=== PATIENT | female | born 1945 | race Caucasian/White ===

== ENCOUNTER 2020-08-22 10:07 | Inpatient (IN) | payer OTHER ==
[2020-08-22] MEDS ORDERED: NA CHLORIDE 0.9% 1,000 ML ONE ×2 (13:21→18:11)
[2020-08-22] MEDS ORDERED: FLEET ENEMA ADULT PR ONE (13:21)
[2020-08-22 14:00] LABS: Absolute Lymphocytes (CBC) 24.5 K/uL (0.7-4.9); Basophils % 0.3 % (0-1.3); Hematocrit 42.5 % (36.0-45.0); Lymphocytes % 46.3 % (15.3-44.8); MPV 8.7 fL (7.6-11.3); RBC Red Blood Cell Count 4.69 M/uL (3.86-4.86)
[2020-08-22 14:07] LABS: Potassium 3.4 mmol/L (3.5-5.1)
--- NOTE | 2020-08-22 15:33 | RAD REPORT ---
EXAM DESCRIPTION: CT - Abdomen Pelvis W Contrast - 08/22/2020 3:13 pm CLINICAL HISTORY: Abd pain;Constipation COMPARISON: Thorax W/ Con dated 04/19/2019 TECHNIQUE: Biphasic, helical CT imaging of the abdomen and pelvis was performed following 100 ml non -ionic IV contrast. Due to the on set of nausea they were was not delay between arterial and venous p hase acquisition. Oral contrast was given. All CT scans are performed using dose optimization technique as appropriate and may include automated exposure control or mA/KV adjustment according to patient size. FINDINGS: No suspicious findings in the lung bases. Patient has a large hiatal hernia with approxima tely 25% of the stomach intrathoracic. Liver shows diffuse fatty infiltration no focal liver lesion. No portal vein abnormality. Pancreatic atrophy and fatty infiltration changes are present with no acute pancreatic process. No splenic abnor mality. Well filled gallbladder shows no wall thickening or edema. There are numerous calcifications within or adjacent to the gallbladder neck and cystic duct. At least some of these calcifications wer e present April 2019. The CT chest study obtained at that time only partially imaged the upper abd omen. No duct stone or biliary tree dilatation seen. An acute gallbladder process is doubtful. Symmetric renal function is seen with no hydronephrosis or suspicious renal mass. Benign renal cysts are present. No pyelonephritis or acute parenchymal process. Contracted urinary bladder shows no susp icious finding. No primary ovarian or uterine abnormality seen. No adrenal abnormalities. No acute stomach or small bowel finding. Oral CT contrast has reached the distal descending colon. No free air or pneumatosis. Trace amounts of free fluid are seen in the dependent portion of the pelvis . The sigmoid colon is tortuous and redundant. Mild diverticulosis is present. The appendix is position ed near the midline and extends inferiorly abutting the tortuous and redundant sigmoid colon. There i s slight sigmoid wall thickening can't stranding in the adjacent fat. The appendix is 12 mm in diamet er. No oral contrast or air within the lumen of the appendix. Tip of the cecum is slightly thickened. It is uncertain if the findings represent a mild sigmoid dive rticulitis with secondary involvement of the colon or the findings represent appendicitis with second peter involvement of the colon. No hernia, mass or bulky lymphadenopathy. No suspicious bony findings. IMPRESSION: The appendix abuts the sigmoid colon in the low midline pelvis and both the appendix and sigmoid colon or abnormal in appearance. Findings may reflect acute appendicitis with secondary involvement of the sigmoid colon. Mild divert iculitis with secondary involvement of the appendix would be possible as well. Correlation is needed with any clinical or laboratory findings that may help differentiate. No free air, abscess, extravasation of contrast or other surgically emergent component. Diffuse fatty infiltration of the liver. Calcifications within or adjacent to the gallbladder neck or cystic duct are probably chronic and without an acute gallbladder or biliary tree component.
--- NOTE | 2020-08-22 16:05 | EDPHYS ---
Physician Documentation [facility] Name: Meseret Meredith Age: 74 yrs Sex: Female : 1945 Arrival Date: 08/22/2020 Time: 10:09 Bed 16 Private MD: ED Physician Evin Braun HPI: 08/22 13:12 This 74 yrs old Female presents to ER via Ambulatory with complaints of rn Constipation. 13:12 The patient presents with abdominal pain in the lower abdomen. Onset: The rn symptoms/episode began/occurred 5 day(s) ago. The symptoms do not radiate. Associated signs and symptoms: Pertinent positives: constipation, nausea, Pertinent negatives: diarrhea, fever, shortness of breath. Modifying factors: The symptoms are alleviated by nothing, the symptoms are aggravated by nothing. Severity of pain: At its worst the pain was mild in the emergency department the pain is unchanged. The patient has not experienced similar symptoms in the past. The patient has not recently seen a physician. Reports no BM for 5 days, takes phentermine for weight loss, no fever, no blood, + lower abd pain. Reports only passing small amount of gas. . Historical: - Allergies: 10:24 Codeine; ca1 - Home Meds: 10:24 levothyroxine oral [Active]; ca1 - PMHx: 10:24 Thyroid problem; ca1 - PSHx: 10:24 None; ca1 - Immunization history:: Client reports receiving the 2nd dose of the Covid vaccine, Client reports receiving the 1st dose of the Covid vaccine, Pneumococcal vaccine is up to date, Flu vaccine is up to date. - Social history:: Smoking status: Patient reports the use of cigarette tobacco products, smokes one-half pack cigarettes per day. - Family history:: not pertinent. - Hospitalizations: : No recent hospitalization is reported. ROS: 13:12 Constitutional: Negative for fever, chills, and weight loss, Eyes: Negative for injury, rn pain, redness, and discharge, Neck: Negative for injury, pain, and swelling, Cardiovascular: Negative for chest pain, palpitations, and edema, Respiratory: Negative for shortness of breath, cough, wheezing, and pleuritic chest pain, Abdomen/GI: + lower abd pain and constipation Back: Negative for injury and pain, : Negative for injury, bleeding, discharge, and swelling, MS/Extremity: Negative for injury and deformity, Skin: Negative for injury, rash, and discoloration, Neuro: Negative for headache, weakness, numbness, tingling, and seizure. Exam: 13:12 Constitutional: This is a well developed, well nourished patient who is awake, alert, rn and in no acute distress. Head/Face: Normocephalic, atraumatic. Cardiovascular: Regular rate and rhythm. No pulse deficits. Respiratory: No increased work of breathing, no retractions or nasal flaring. Abdomen/GI: soft, + suprapubic tenderness, no rebound Skin: Warm, dry MS/ Extremity: Pulses equal, no cyanosis. Neuro: Awake and alert, GCS 15 Vital Signs: 10:21 BP 124 / 74; Pulse 116; Resp 18 S; Temp 98.3(TE); Pulse Ox 100% on R/A; Weight 83.91 kg ca1 (R); Height 5 ft. 0 in. (152.40 cm) (R); Pain 5/10; 12:45 BP 117 / 70; Pulse 106; Resp 17; Pulse Ox 95% ; bp 13:45 BP 99 / 31; Pulse 90; Resp 18; Pulse Ox 95% ; bp 15:29 BP 105 / 63; Pulse 95; Resp 17; Pulse Ox 96% ; bp 16:30 BP 124 / 51; Pulse 105; Resp 16; Pulse Ox 96% ; bp 10:21 Body Mass Index 36.13 (83.91 kg, 152.40 cm) ca1 MDM: 12:51 Patient medically screened. rn 16:02 Differential diagnosis: appendicitis, bowel obstruction, diverticulitis, non-specific rn abd pain. Data reviewed: vital signs, nurses notes, lab test result(s), radiologic studies, CT scan, and as a result, I will admit patient. Counseling: I had a detailed discussion with the patient and/or guardian regarding: the historical points, exam findings, and any diagnostic results supporting the discharge/admit diagnosis, lab results, radiology results, the need for further work-up and treatment in the hospital. Response to treatment: the patient's symptoms have mildly improved after treatment, and as a result, I will admit patient. Admission orders: after a detailed discussion of the patient's condition and case, the admit orders are written by me. ED course: Pt with unclear etiology of abd pain, ct shows possible diverticulitis with extension to midline appendicitis or vice versa. Consulted with Dr. Turner, has come to ER for evaluation. . 08/22 12:59 Order name: CBC with Diff rn 08/22 12:59 Order name: Basic Metabolic Panel rn 08/22 13:00 Order name: CBC with Automated Diff EDMS 08/22 13:00 Order name: Basic Metabolic Panel; Complete Time: 15:45 EDMS 08/22 16:37 Order name: Basic Metabolic Panel EDMS 08/22 16:37 Order name: Basic Metabolic Panel EDMS 08/22 12:59 Order name: CT Abd/Pelvis - PO and IV Contrast; Complete Time: 15:45 rn 08/22 16:24 Order name: Abdomen EDMS 08/22 16:37 Order name: CBC with Automated Diff EDMS 08/22 16:37 Order name: CBC with Automated Diff EDMS 08/22 18:36 Order name: COVID-19 : Document "Date of Symptom Onset" if Symptomatic. bd 08/22 19:14 Order name: CORONAVIRUS EDMS 08/22 20:00 Order name: SARS-COV-2 RT PCR EDMS 08/22 21:50 Order name: Manual Differential EDMS 08/22 12:59 Order name: IV Start; Complete Time: 14:43 rn 08/22 16:05 Order name: Consult Surgery-Fazal Turner MD (GENERAL SURGERY) rn 08/22 16:37 Order name: CONS Physician Consult EDAZ 08/22 16:37 Order name: NPO EDAZ Administered Medications: 13:10 Drug: Fleet Enema 133 ml Route: TX; bp 14:42 Follow up: Response: No adverse reaction bp 13:30 Drug: NS 0.9% 1000 ml Route: IV; Rate: 1000 ml; Site: left forearm; bp 18:22 Follow up: IV Status: Completed infusion; IV Intake: 1000ml bp 16:15 Drug: Zosyn 3.375 grams Route: IVPB; Infused Over: 60 mins; Site: left antecubital; bp 18:22 Follow up: IV Status: Completed infusion; IV Intake: 100ml bp 16:19 CANCELLED (Wrong MD): Dulcolax (bisacodyl) Suppository 10 mg TX once jl7 16:19 CANCELLED (wrong MD): Magnesium Citrate Liquid 300 ml PO once jl7 16:47 Drug: Magnesium Citrate Liquid 300 ml Route: PO; bp 18:22 Follow up: Response: No adverse reaction bp 16:47 Drug: Dulcolax (bisacodyl) Suppository 10 mg Route: TX; bp 18:22 Follow up: Response: No adverse reaction bp Disposition: 08/22/20 16:05 Hospitalization ordered by Dionne Purcell for Inpatient Admission. Preliminary diagnosis are Diverticulitis of large intestine without perforation or abscess without bleeding, Unspecified acute appendicitis. - Bed requested for Telemetry/MedSurg (Inpatient). - Status is Inpatient Admission. ea - Condition is Stable. - Problem is new. - Symptoms have improved. Signatures: Dispatcher [employer] EDMS Renae Boyd Diana, RN RN dw Nieto, Roman, MD MD rn Leal, Jahala, RN RN jl7 Corine Arguelles RN RN ea Peltier, Brian, RN RN bp Acob, Cheryl RN ALDAIR ca1 Corrections: (The following items were deleted from the chart) 15:46 13:12 Constitutional: This is a well developed, well nourished patient who is awake, rn alert, and in no acute distress. Head/Face: Normocephalic, atraumatic. Cardiovascular: Regular rate and rhythm. No pulse deficits. Respiratory: No increased work of breathing, no retractions or nasal flaring. Abdomen/GI: soft, no focal tenderness, no distension Skin: Warm, dry MS/ Extremity: Pulses equal, no cyanosis. Neuro: Awake and alert, GCS 15 rn 16:19 16:13 Dulcolax (bisacodyl) Suppository 10 mg TX once ordered. jl7 jl7 16:19 16:13 Magnesium Citrate Liquid 300 ml PO once ordered. jl7 jl7 17:17 16:05 Hospitalization Ordered by Dionne Purcell MD for Inpatient Admission. Preliminary bd diagnosis is Diverticulitis of large intestine without perforation or abscess without bleeding; Unspecified acute appendicitis. Bed requested for Telemetry/MedSurg (Inpatient). Status is Inpatient Admission. Condition is Stable. Problem is new. Symptoms have improved. rn 22:17 17:17 08/22/2020 16:05 Hospitalization Ordered by Dionne Purcell MD for Inpatient dw Admission. Preliminary diagnosis is Diverticulitis of large intestine without perforation or abscess without bleeding; Unspecified acute appendicitis. Bed requested for [facility] ER HOLD. Status is Inpatient Admission. Condition is Stable. Problem is new. Symptoms have improved. bd 08/23 00:09 08/22 22:17 08/22/2020 16:05 Hospitalization Ordered by Dionne Purcell MD for Inpatient ea Admission. Preliminary diagnosis is Diverticulitis of large intestine without perforation or abscess without bleeding; Unspecified acute appendicitis. Bed requested for Telemetry/MedSurg (Inpatient). Status is Inpatient Admission. Condition is Stable. Problem is new. Symptoms have improved. dw
--- NOTE | 2020-08-22 16:05 | ER ---
Nurse's Notes [facility] Name: Meseret Meredith Age: 74 yrs Sex: Female : 1945 Arrival Date: 08/22/2020 Time: 10:09 Bed 16 Private MD: Diagnosis: Diverticulitis of large intestine without perforation or abscess without bleeding;Unspecified acute appendicitis Presentation: 08/22 10:21 Chief complaint: Patient states: have not had BM in 5 - 6 days. Tried fleet enema, ca1 laxatives, no relief. Reports pain and discomfort on buttocks. Reports nausea. Coronavirus screen: Client denies travel out of the [place] in the last 14 days. nausea, Client presents with at least one sign or symptom that may indicate coronavirus-19. Standard/surgical mask placed on the client. Provider contacted for isolation considerations. Ebola Screen: Patient negative for fever greater than or equal to 101.5 degrees Fahrenheit, and additional compatible Ebola Virus Disease symptoms Patient denies exposure to infectious person. Patient denies travel to an Ebola-affected area in the 21 days before illness onset. No symptoms or risks identified at this time. Initial Sepsis Screen: Does the patient meet any 2 criteria? No. Patient's initial sepsis screen is negative. Does the patient have a suspected source of infection? No. Patient's initial sepsis screen is negative. Risk Assessment: Do you want to hurt yourself or someone else? Patient reports no desire to harm self or others. Onset of symptoms was August 22, 2020. 10:21 Method Of Arrival: Ambulatory ca1 10:21 Acuity: GINA 3 ca1 Triage Assessment: 12:45 General: Appears distressed, uncomfortable, obese, Behavior is cooperative, appropriate bp for age, anxious. Pain: Complains of pain in abdomen. EENT: No deficits noted. Neuro: No deficits noted. Cardiovascular: No deficits noted. Respiratory: No deficits noted. GI: Reports lower abdominal pain, constipation. : No signs and/or symptoms were reported regarding the genitourinary system. Derm: No deficits noted. Musculoskeletal: No deficits noted. Historical: - Allergies: 10:24 Codeine; ca1 - Home Meds: 10:24 levothyroxine oral [Active]; ca1 - PMHx: 10:24 Thyroid problem; ca1 - PSHx: 10:24 None; ca1 - Immunization history:: Client reports receiving the 2nd dose of the Covid vaccine, Client reports receiving the 1st dose of the Covid vaccine, Pneumococcal vaccine is up to date, Flu vaccine is up to date. - Social history:: Smoking status: Patient reports the use of cigarette tobacco products, smokes one-half pack cigarettes per day. - Family history:: not pertinent. - Hospitalizations: : No recent hospitalization is reported. Screenin:45 Abuse screen: Denies threats or abuse. Denies injuries from another. Nutritional bp screening: No deficits noted. Tuberculosis screening: No symptoms or risk factors identified. Fall Risk None identified. Assessment: 12:45 General: SEE TRIAGE NOTE. bp 13:10 Reassessment: PO CONTRAST COMPLETE, CT NOTIFIED. bp 13:45 Reassessment: No changes from previously documented assessment. Patient and/or family bp updated on plan of care and expected duration. Pain level reassessed. Patient is alert, oriented x 3, equal unlabored respirations, skin warm/dry/pink. CT PENDING. 15:29 Reassessment: No changes from previously documented assessment. Patient and/or family bp updated on plan of care and expected duration. Pain level reassessed. Patient is alert, oriented x 3, equal unlabored respirations, skin warm/dry/pink. PT RETURNED FROM CT. RESULTS PENDING. 15:50 Reassessment: Dr. Braun at bedside discussing results and POC. jl7 16:05 Reassessment: DR SCHWAB AT B/S FOR SURG C/S. bp 17:30 Reassessment: PT ON ER HOLD. SEE [facility] FOR FURTHER CHARTING. bp Vital Signs: 10:21 BP 124 / 74; Pulse 116; Resp 18 S; Temp 98.3(TE); Pulse Ox 100% on R/A; Weight 83.91 kg ca1 (R); Height 5 ft. 0 in. (152.40 cm) (R); Pain 5/10; 12:45 BP 117 / 70; Pulse 106; Resp 17; Pulse Ox 95% ; bp 13:45 BP 99 / 31; Pulse 90; Resp 18; Pulse Ox 95% ; bp 15:29 BP 105 / 63; Pulse 95; Resp 17; Pulse Ox 96% ; bp 16:30 BP 124 / 51; Pulse 105; Resp 16; Pulse Ox 96% ; bp 10:21 Body Mass Index 36.13 (83.91 kg, 152.40 cm) ca1 ED Course: 10:09 Patient arrived in ED. as 10:23 Triage completed. ca1 10:24 Arm band placed on right wrist. ca1 12:45 Patient has correct armband on for positive identification. Bed in low position. Call bp light in reach. Side rails up X2. 12:51 Evin Braun MD is Attending Physician. rn 13:00 Demetrius Guallpa RN is Primary Nurse. bp 13:40 Inserted saline lock: 20 gauge in left forearm, using aseptic technique. Blood bp collected. 13:52 Basic Metabolic Panel Sent. bp 13:52 CBC with Diff Sent. bp 15:12 CT Abd/Pelvis - PO and IV Contrast In Process Unspecified. EDMS 16:04 Dionne Purcell MD is Hospitalizing Provider. rn 18:21 No provider procedures requiring assistance completed. Patient admitted, IV remains in bp place. Administered Medications: 13:10 Drug: Fleet Enema 133 ml Route: DE; bp 14:42 Follow up: Response: No adverse reaction bp 13:30 Drug: NS 0.9% 1000 ml Route: IV; Rate: 1000 ml; Site: left forearm; bp 18:22 Follow up: IV Status: Completed infusion; IV Intake: 1000ml bp 16:15 Drug: Zosyn 3.375 grams Route: IVPB; Infused Over: 60 mins; Site: left antecubital; bp 18:22 Follow up: IV Status: Completed infusion; IV Intake: 100ml bp 16:19 CANCELLED (Ashley POWELL): Dulcolax (bisacodyl) Suppository 10 mg DE once jl7 16:19 CANCELLED (ashley POWELL): Magnesium Citrate Liquid 300 ml PO once jl7 16:47 Drug: Magnesium Citrate Liquid 300 ml Route: PO; bp 18:22 Follow up: Response: No adverse reaction bp 16:47 Drug: Dulcolax (bisacodyl) Suppository 10 mg Route: DE; bp 18:22 Follow up: Response: No adverse reaction bp Intake: 18:22 IV: 100ml; Total: 100ml. bp 18:22 IV: 1000ml; Total: 1100ml. bp Outcome: 16:05 Decision to Hospitalize by Provider. rn 17:30 Admitted to ER Hold. [facility] documentation. bp 17:30 Condition: stable 17:30 Instructed on the need for admit. 08/23 00:09 Patient left the ED. ea Signatures: Dispatcher [employer] Cira Amador Roman, MD MD rn Leal, Jahala RN RN jl7 Corine Arguelles RN Demetrius Tamayo ea RN RN bp Esme Swanson RN RN ca1
[2020-08-22] MEDS ORDERED: ACETAMINOPHEN 500 MG TAB PO PRN (16:34)
[2020-08-22] MEDS ORDERED: ONDANSETRON 4 MG/2 ML VIAL IV PRN (16:34)
[2020-08-22] MEDS ORDERED: HYDROMORPHONE HCL 1 MG/ML INJ IV PRN (16:34)
[2020-08-22] MEDS ORDERED: PIPER/TAZO/NS 3.375gm 3.375 GM/100 ML BAG ONE (16:36)
[2020-08-22] MEDS ORDERED: MAGNESIUM CITRATE 300 ML BOT ONE (16:53)
[2020-08-22] MEDS ORDERED: BISACODYL 10 MG RECTAL SUPP ONE (16:53)
[2020-08-22] MEDS: NA CHLORIDE 0.9% 1,000 ML IV SCH (17:00)
[2020-08-22] MEDS: Levofloxacin500mg IV 500 MG/100 ML BAG IV SCH (17:00)
[2020-08-22] MEDS: METRONIDAZOLE 500mg IVPB 500 MG/100 ML BAG IV SCH (18:00)
[2020-08-22 18:45] VITALS: BMI 36.1
--- NOTE | 2020-08-22 21:08 | CON ---
Date of Consultation: 08/22/2020 Brief Hpi: The patient is a 74-year-old female who has been noticing constipation for approximately 5 days prior to her presentation to the emergency room. She has never had similar episodes before in the past. No recent sick contacts. No new food exposures. No recent travel. No COVID exposure by her description. She states that she has had decreased p.o. intake over the last 2 days as well. S he does take phentermine for weight loss, but she has not tried any other medications to help with ca tharsis. Past Medical History: Significant for Rhea's thyroiditis, chronic lymphoid leukemia. Past Surgical History: She has had a D and C when she was 31. Home Medications: Include levothyroxine and phentermine. Allergies: TO CODEINE, WHICH CAUSES CONFUSION AND NAUSEA AND ITCHING. Immunization: She has received a second dose of the COVID vaccine. Social History: She smokes cigarettes. She denies alcohol or recreational drug use. Review of Systems: Ten-point review of systems other than HPI, denies. Colonoscopy: Her last colonoscopy was 6 years ago. She reports that it was completely normal, but c annot recall specific details but does not recall any findings on that particular occasion. Physical Examination: General: At the time of my examination, she is awake, alert, oriented. Psychiatric: She answers questions appropriately. Conversive. HEENT: She was normocephalic. Her sclerae were anicteric. Her mucous membranes were moist. Oropha rynx is clear. Neck: Supple without JVD. Chest: Normal expansion and excursion. Cardiovascular: Regular rate and rhythm. Pulmonary: Clear to auscultation bilaterally. Abdomen: Soft with positive suprapubic right lower quadrant, left lower quadrant tenderness to palpa tion. No focal peritonitis. No rebound or guarding. Her abdomen is obese. Extremities: No clubbing, cyanosis, edema. Skin: Warm and dry. Laboratory Data: Reveals a white blood count of 52.9. Her hemoglobin is 14.2, hematocrit of 42.5, h er platelet count is 360. Neutrophils are 49%. Sodium 134, potassium 3.4, chloride 101. Carbon sánchez xide 26, BUN 18, creatinine 0.8, glucose is 128. She had imaging performed, which included a CT scan of the abdomen and pelvis, officially read as appendix about the sigmoid colon in the low midline pe lvis and both the appendix and sigmoid colon are abnormal in appearance. Findings may reflect acute appendicitis with secondary involvement of the sigmoid colon, mild diverticulitis with secondary invo lvement of the appendix would be possible as well. Correlation is needed with any clinical or labora tory findings that may help differentiate. No free air, extravasation of contrast, surgically emerge nt component. Diffuse fatty infiltration of liver, calcifications, or adjacent gallbladder neck, or cystic duct, probably chronic and without acute gallbladder or biliary tree component. Assessment And Plan: This is a 74-year-old female who comes in with history of chronic lymphoid leuk emia with inflammatory process either diverticulitis versus acute appendicitis. 1.Cannot differentiate the etiology at this time. As such, the patient will be given a Dulcolax sup pository and magnesium citrate to help with bowel function. In addition, she will be given. 2.Antibiotic coverage with Zosyn 3.375 IV q.6. 3.IV fluid hydration. 4.N.p.o. after midnight. 5.We will repeat CT scan of the abdomen pelvis tomorrow to see if we can differentiate and better de fine the etiology if this is acute appendicitis. I have explained the risks, benefits, and alternati ves of laparoscopic possible open appendectomy including, but not limited to bleeding, infection, dam age to surrounding tissue, need further operative procedures. If it is sigmoid diverticulitis, will continue treat her nonoperatively with antibiotic coverage and serial abdominal exams and she will ne ed an outpatient colonoscopy. I have explained the risks, benefits, and alternatives of the above stated plan. The patient to proceed as indicated. FRAN/ADI Voice ID: [id number] Report ID: [id number]
[2020-08-22 21:49] LABS: Platelet Estimate ADEQ; Smudge Cells PRESENT
[2020-08-22 21:50] LABS: Blood Morphology Comment NOT SEEN (NOT SEEN)
[2020-08-23] MEDS: METRONIDAZOLE 500mg IVPB 500 MG/100 ML BAG IV SCH ×4 (00:24→17:18)
[2020-08-23] MEDS: NA CHLORIDE 0.9% 1,000 ML IV SCH ×3 (00:24→17:00)
[2020-08-23 05:34] LABS: Absolute Lymphocytes (CBC) 19.9 K/uL (0.7-4.9); Basophils % 0.1 % (0-1.3); Hematocrit 36.2 % (36.0-45.0); Lymphocytes % 44.8 % (15.3-44.8); MPV 8.2 fL (7.6-11.3)
[2020-08-23 05:50] LABS: BUN Blood Urea Nitrogen 15 mg/dL (7-18); Bicarbonate 27 mmol/L (21-32); Glucose Level 110 mg/dL (74-106); Potassium 3.8 mmol/L (3.5-5.1); Sodium Level 141 mmol/L (136-145)
--- NOTE | 2020-08-23 09:53 | P.HP ---
Certification for Inpatient Patient admitted to: Inpatient With expected LOS: >2 Midnights Patient will require the following post-hospital care: None Practitioner: I am a practitioner with admitting privileges, knowledge of patient current condition, hospital course, and medical plan of care. Services: Services provided to patient in accordance with Admission requirements found in Title 42 Section 412.3 of the Code of Federal Regulations Patient History Date of Service: 08/22/20 Reason for admission: Abdominal pain History of Present Illness: Patient is a 74-year-old female came to the hospital with pain in the left lower quadrant. Patient states that the pain was getting more severe through the day so she came into the ER for further evaluation. In the emergency room she had imaging studies which revealed questionable appendicitis but most likely diverticulitis. Patient was started on IV antibiotic therapy. Patient be admitted to the hospital and surgery wants to repeat the CT scan this morning. If that is negative then patient can possibly be used treated with antibiotics with outpatient colonoscopy. Allergies codeine Allergy (Verified 08/22/20 17:41) Rash Home Medications: Cholecalciferol (Vitamin D3) [Vitamin D3] 1 tab PO DAILY 08/22/20 Levothyroxine [Synthroid*] 100 mcg PO DAILY 08/22/20 Phentermine HCl 37.5 mg PO DAILY 08/22/20 - Past Medical/Surgical History Has patient received pneumonia vaccine in the past: Yes Diabetic: No -: HYPOTHYROID Past Surgical History: Patient denies surgical history - Family History Father Family History: Reviewed- Non-Contributory - Social History Smoking Status: Never smoker Alcohol use: No CD- Drugs: No Review of Systems 10-point ROS is otherwise unremarkable Physical Examination - Vital Signs Temperature: 97.7 F Blood Pressure: 137/63 Pulse: 92 Respirations: 17 Pulse Ox (%): 96 - Physical Exam General: Alert, In no apparent distress, Oriented x3 HEENT: Atraumatic, PERRLA, Mucous membr. moist/pink, EOMI, Sclerae nonicteric Neck: Supple, 2+ carotid pulse no bruit, No LAD, Without JVD or thyroid abnormality Respiratory: Clear to auscultation bilaterally, Normal air movement Cardiovascular: Regular rate/rhythm, Normal S1 S2 Gastrointestinal: Normal bowel sounds, Soft and benign, Non-distended, No r ebound, No guarding, Tenderness (Left lower quadrant) Musculoskeletal: No clubbing, No swelling, No tenderness Integumentary: No rashes Neurological: Normal gait, Normal speech, Normal strength at 5/5 x4 extr, Normal tone, Sensation intact, Cranial nerves 3-12 intact, Normal affect Lymphatics: No axilla or inguinal lymphadenopathy - Studies Laboratory Data (last 24 hrs) 08/22/20 13:40: Sodium 134 L, Potassium 3.4 L, BUN 18, Creatinine 0.85, Glucose 128 H 08/22/20 13:40: WBC 52.90 H*, Hgb 14.2, Hct 42.5, Plt Count 360 Assessment & Plan - Problems (Diagnosis) (1) Diverticulitis Current Visit: Yes Status: Acute (2) Appendicitis Current Visit: Yes Status: Acute (3) Hypothyroidism Current Visit: Yes Status: Acute - Plan 1. Continue with IV hydration 2. Continue with IV antibiotics 3. Continue with pain control 4. NPO 5. General surgery consultation; outpatient colonoscopy in 6-12 weeks 6. Serial H&H, and we will monitor CBC, BMP, LFTs and lipase along with electrolytes. 7. GI and DVT prophylaxis - Advance Directives Does patient have a Living Will: No Does patient have a Durable POA for Healthcare: No
--- NOTE | 2020-08-23 09:54 | P.PN ---
Subjective Date of Service: 08/23/20 Clinically, pain is better controlled. Continue IV antibiotic therapy. Review of Systems 10-point ROS is otherwise unremarkable Physical Examination - Vital Signs Temperature: 97.7 F Blood Pressure: 137/63 Pulse: 92 Respirations: 17 Pulse Ox (%): 96 - Physical Exam General: Alert, In no apparent distress, Oriented x3 Respiratory: Clear to auscultation bilaterally, Normal air movement Cardiovascular: Regular rate/rhythm, Normal S1 S2 Gastrointestinal: Normal bowel sounds, Soft and benign, Non-distended, Tenderness Musculoskeletal: No clubbing, No swelling Neurological: Normal strength at 5/5 x4 extr, Normal tone, Sensation intact, Cranial nerves 3-12 intact - Studies Laboratory Data (last 24 hrs) 08/22/20 13:40: Sodium 134 L, Potassium 3.4 L, BUN 18, Creatinine 0.85, Glucose 128 H 08/22/20 13:40: WBC 52.90 H*, Hgb 14.2, Hct 42.5, Plt Count 360 Assessment & Plan - Problems (Diagnosis) (1) Diverticulitis Status: Acute (2) Appendicitis Status: Acute (3) Hypothyroidism Status: Acute - Plan Continue with plan of care as mentioned below 1. Continue with IV hydration 2. Continue with IV antibiotics 3. Continue with pain control 4. Clear liquid diet and advance as tolerated 5. General surgery consultation; 6. Serial H&H, and we will monitor CBC, BMP, LFTs and lipase along with e lectrolytes. 7. GI and DVT prophylaxis Discharge Plan: Home Plan to discharge in: Greater than 2 days - Advance Directives Does patient have a Living Will: No Does patient have a Durable POA for Healthcare: No - Code Status/Comfort Care Code Status Assessed: Yes Code Status: Full Code Critical Care: No Time Spent Managing PTS Care (In Minutes): 35
--- NOTE | 2020-08-23 11:07 | RAD REPORT ---
EXAM DESCRIPTION: CT - Abdomen Pelvis W Contrast - 08/23/2020 10:51 am CLINICAL HISTORY: Abdominal pain. COMPARISON: August 22, 2020 TECHNIQUE: Computed axial tomography of the abdomen and pelvis was obtained. 100 cc Isovue-300 is ad ministered intravenously. Oral contrast was given. All CT scans are performed using dose optimization technique as appropriate and may include automated exposure control or mA/KV adjustment according to patient size. FINDINGS: Mild fatty liver. Cholelithiasis Moderate hiatal hernia The spleen, pancreas and adrenals are unremarkable. Small renal cysts. The appendix extends superiorly from the cecum. The appendix is thickened with stranding within the a djacent fat. The appendix abuts the sigmoid colon which is thickened. No free air. No abscess seen. IMPRESSION: These findings most likely represent appendicitis with secondary inflammation of the sig moid colon.
[2020-08-23] MEDS ORDERED: ALBUTEROL 2.5 MG/3 ML NEB SOL ONE (11:10)
[2020-08-23] MEDS ORDERED: propofoL 200 MG/20 ML VIAL IV ONE (13:59)
[2020-08-23] MEDS ORDERED: LIDOCAINE 1% MPF 5 ML VIAL ONE (13:59)
[2020-08-23] MEDS ORDERED: FENTANYL CITR 100 MCG/2 ML ONE ×2 (13:59→15:45)
[2020-08-23] MEDS ORDERED: ROCURONIUM 50 MG/5 ML VIAL IV ONE (13:59)
[2020-08-23] MEDS ORDERED: BUPIVACAINE 0.25% PF 30 ML VIAL ONE (14:28)
[2020-08-23] MEDS ORDERED: dexAMETHasone 10 MG/ML VIAL ONE (15:09)
[2020-08-23] MEDS ORDERED: Phenylephrine HCl 10 MG/ML 1 ML VIAL ONE (15:25)
--- NOTE | 2020-08-23 15:51 | P.OP ---
Preoperative diagnosis: Acute Appendicitis Postoperative diagnosis: Acute Suppurative Appendicitis Primary procedure: Laparoscopic Appendectomy Anesthesia: GETA + Local Estimated blood loss: <10cc Specimen: Vermiform Appendix Findings: Suppurative Appendicitis, in contact with sigmoid colon, right fallopian tu Complications: None Transferred to: Recovery Room Condition: Good
[2020-08-23] MEDS ORDERED: KETOROLAC 30 MG/ML INJ ONE (16:01)
[2020-08-23] MEDS ORDERED: GLYCOPYRROLATE 0.2 MG/ML SYR ONE (16:04)
[2020-08-23] MEDS ORDERED: NEOSTIGMINE 1 MG/ML -5 ML ONE (16:04)
[2020-08-23] MEDS ORDERED: NA CHLORIDE 0.9% 1,000 ML ONE (16:24)
[2020-08-23] MEDS: Levofloxacin500mg IV 500 MG/100 ML BAG IV SCH (17:18)
--- NOTE | 2020-08-23 23:16 | OP ---
Date of Procedure: 08/23/2020 Surgeon: Fazal Turner MD, Brief Hpi: The patient is a 74-year-old female with CLL who presents with abdominal pain for several days to the ER. She had a CT scan of the abdomen and pelvis, which showed inflammatory changes and her appendix is in apposition to her sigmoid colon. As such, the diagnosis was challenging and incon clusive whether she had an episode of sigmoid diverticulitis or acute nonperforated appendicitis. As such, I ordered a repeat CT scan of the abdomen and pelvis today and this helped to better define th e inflammatory processes more likely emanating from the appendix. As such, I spoke to the patient. I explained the risks, benefits, and alternatives of laparoscopic possible open appendectomy includin g, but not limited to bleeding, infection, damage to surrounding tissue, need for further operative p rocedures. The patient agreed to proceed as indicated. As such, she was brought to the operating ro om with the above-stated diagnosis of acute appendicitis. Preoperative Diagnosis: Acute appendicitis. Postoperative Diagnosis: Acute suppurative appendicitis. Procedure Performed: Laparoscopic appendectomy. Anesthesia: General endotracheal plus local with 0.25% Marcaine without epinephrine. Estimated Blood Loss: Less than 10 cc. Specimen: Vermiform appendix. Findings: Suppurative appendicitis in contact with sigmoid colon and right fallopian tube. Complications: None. Disposition: The patient was transferred to recovery room in good condition. Procedure In Detail: After informed consent was obtained as described above, the patient was prepped and draped in the usual sterile fashion. After adequate anesthesia was achieved, I made an infraumb ilical incision and placed a 5 mm 0-degree optical trocar in the abdomen without evidence of complica tion. Insufflation was obtained to 15 mmHg at this time. There was no injury to vital structures up on entry to the abdomen. There were suppurative changes in the right lower quadrant and in the midli ne on inspection. At this point, I placed additional trocar in the right lower quadrant under direct visualization. A 5 mm trocar was placed without evidence of complication. Additional trocars were placed in the left mid to upper quadrant under direct visualization without evidence of complication. This was a 5 mm trocar and the umbilical trocar was upsized to a 12 mm under direct visualization w ithout evidence of complication. The patient was positioned head down right side up position. Ratch eted grasper was used to grasp the patient's appendix and the base of the appendix was easily defined . However, dissection of the appendix proved challenging as there were significant suppurative almanza es and adhesions between the sigmoid colon and the fallopian tube on the right and fimbriae of the fa llopian tube. At this point, dissection was continued circumferentially using blunt dissection and h ydrodissection with the suction earth auger operator. After the appendix was mobilized, it was noted to have alba ppurative changes. No obvious perforation of the area, but there were suppurative changes to the keily rounding region. As such, this inflammatory rind was suctioned off without evidence of complication. I then created a mesoappendiceal window with the LigaSure device and fired the Endo MIMI 35 blue shellie d across the base of the appendix with good approximation of the tissues and used the LigaSure to bonilla e the mesoappendix down without evidence of complication. The appendix was then placed in EndoCatch bag and removed through the umbilical trocar site and sent off for pathologic examination. I then co piously irrigated the abdomen with approximately 3 L of saline and repositioned the patient several t imes and suctioned out the pelvis of all remaining effluent. The patient was positioned back in neut ral position and the remainder of the abdomen was suctioned out and the umbilical trocar was removed. Umbilical trocar site was closed using a [place] suture passer with 0 Vicryl in interrupted fashion with good apposition of the tissues. I then desufflated the abdomen under direct visualizat ion without evidence of complication. then copiously irrigated and dried and closed with 4-0 Monocryl in a running fashion with Dermabond placed over top. The patient tolerated the procedur e well without evidence of complication and transferred to PACU in good condition. All counts were correct at the end of the case. FRAN/ADI Voice ID: [id number] Report ID: [id number]
[2020-08-24] MEDS: METRONIDAZOLE 500mg IVPB 500 MG/100 ML BAG IV SCH ×3 (00:56→11:20)
[2020-08-24] MEDS: NA CHLORIDE 0.9% 1,000 ML IV SCH ×3 (00:57→12:23)
[2020-08-24] MEDS ORDERED: PANTOPRAZOLE 40MG TABLET PO SCH (07:30)
[2020-08-24 09:07] LABS: Absolute Lymphocytes (CBC) 17.1 K/uL (0.7-4.9); Basophils % 0.1 % (0-1.3); Hematocrit 35.8 % (36.0-45.0); Lymphocytes % 50.1 % (15.3-44.8); MPV 9.2 fL (7.6-11.3); RBC Red Blood Cell Count 3.97 M/uL (3.86-4.86)
[2020-08-24 09:57] LABS: Blood Morphology Comment NOT SEEN (NOT SEEN); Platelet Estimate ADEQ
[2020-08-24 10:08] VITALS: O2SAT 96
[2020-08-29 23:37] VITALS: BP 137/63; TEMP 97.7
--- NOTE | 2020-08-29 23:40 | P.DS ---
Discharge Date: 08/24/20 Disposition: ROUTINE DISCHARGE Discharge Condition: GOOD Reason for Admission: Abdominal pain Consultations: General surgeon - Problems (1) Diverticulitis Status: Acute (2) Appendicitis Status: Acute (3) Hypothyroidism Status: Acute Brief History of Present Illness: Patient is a 74-year-old female came to the hospital with pain in the left lower quadrant. Patient states that the pain was getting more severe through the day so she came into the ER for further evaluation. In the emergency room she had imaging studies which revealed questionable appendicitis but most likely diverticulitis. Patient was started on IV antibiotic therapy. Patient be admitted to the hospital and surgery wants to repeat the CT scan this morning. If that is negative then patient can possibly be used treated with antibiotics with outpatient colonoscopy. Hospital Course: Patient had to be taken to the operating room and had a laparoscopic appendectomy. Patient did well postoperatively. At this time, patient is stable for discharge with admission follow up. Continue with antibiotics and pain control at the time of discharge. Vital Signs/Physical Exam: Temp Pulse Resp BP Pulse Ox 97.7 F 92 H 17 137/63 96 08/29/20 23:37 08/29/20 23:37 08/29/20 23:37 08/29/20 23:37 08/29/20 23:37 General: Alert, In no apparent distress, Oriented x3 Laboratory Data at Discharge: WBC 34.20 K/uL (4.3-10.9) H* D 08/24/20 08:39 Hgb 11.8 g/dL (12.0-15.0) L 08/24/20 08:39 Hct 35.8 % (36.0-45.0) L 08/24/20 08:39 Plt Count 282 K/uL (152-406) 08/24/20 08:39 Sodium 141 mmol/L (136-145) 08/23/20 05:00 Potassium 3.8 mmol/L (3.5-5.1) 08/23/20 05:00 BUN 15 mg/dL (7-18) 08/23/20 05:00 Creatinine 0.62 mg/dL (0.55-1.3) 08/23/20 05:00 Glucose 110 mg/dL (74-106) H 08/23/20 05:00 Home Medications: Cholecalciferol (Vitamin D3) [Vitamin D3] 1 tab PO DAILY 08/22/20 Levothyroxine [Synthroid*] 100 mcg PO DAILY 08/22/20 Phentermine HCl 37.5 mg PO DAILY 08/22/20 Cefdinir [Omnicef] 300 mg PO BID #10 capsule 08/24/20 Hydrocodone 5/APAP 325 [[place] 5/325] 1 tab PO Q6H PRN #20 tab 08/24/20 New Medications: Hydrocodone 5/APAP 325 [[place] 5/325] 1 tab PO Q6H PRN #20 tab PRN Reason: Pain Cefdinir [Omnicef] 300 mg PO BID #10 capsule Physician Discharge Instructions: Follow-up with Dr. Turner in [address] Purcell if any questions regarding medical issues, Diet: Regular Activity: Ad sharan Followup: Inocente Hernandez MD [Primary Care Provider] - Fazal Turner MD [ACTIVE - CAN ADMIT] - Time spent managing pt's care (in minutes): 35
== END 2020-08-24 14:51 | disposition home or self-care (01) | DRG 342 ==
LOC: ER 10:07 → ERHOLD 17:00 → 2ND 23:47
PROVIDERS: ADMIT Hospitalist; ATTEND Hospitalist
PROC: 0DTJ4ZZ Resection of Appendix, Percutaneous Endoscopic Approach (ICD-10-PCS; principal; 2020-08-23 14:30)
DX: K35.80 Unspecified acute appendicitis (principal); K57.32 Diverticulitis of large intestine without perforation or abscess without bleeding; C91.10 Chronic lymphocytic leukemia of B-cell type not having achieved remission; E03.9 Hypothyroidism, unspecified; F17.210 Nicotine dependence, cigarettes, uncomplicated; K59.00 Constipation, unspecified; Z88.5 Allergy status to narcotic agent; Z79.890 Hormone replacement therapy; Z79.899 Other long term (current) drug therapy; Z20.822 Contact with and (suspected) exposure to COVID-19
CPT/HCPCS: 36415; 74177; 80048; 85025; 88304; 96361; 96365; 96366; 99285; J1100; J1170; J2370; J2543; J2704; J2710; J3010; J7030; Q9967; U0003

== ENCOUNTER 2022-09-10 06:08 | Observation (INO) | payer MEDICARE ==
[2022-09-05 10:22] LABS: Protime INR 0.92
[2022-09-05 10:23] LABS: Absolute Lymphocytes (CBC) 43.9 K/uL (0.7-4.9); Hematocrit 42.5 % (36.0-45.0); Lymphocytes % 79.7 % (15.3-44.8); MCV 91.9 fL (80-100); MPV 8.1 fL (7.6-11.3); Potassium 4.5 mEq/L (3.5-5.1); RBC Red Blood Cell Count 4.63 M/uL (3.86-4.86)
[2022-09-05 10:24] LABS: SARS-CoV-2 Antigen Rapid Res Negative (Negative)
--- NOTE | 2022-09-05 10:30 | RAD REPORT ---
EXAM DESCRIPTION: Sherif Calix (2 Views)09/05/2022 9:59 am CLINICAL HISTORY: Preop for knee replacement COMPARISON: None FINDINGS: The lungs appear clear of acute infiltrate. The heart is normal size IMPRESSION: No acute abnormalities displayed
[2022-09-05 13:20] LABS: Blood Morphology Comment NOT SEEN (NOT SEEN); Platelet Estimate ADEQ
[2022-09-10] MEDS ORDERED: CEFAZOLIN SODIUM 2 GM/VIAL ONE (06:37)
[2022-09-10] MEDS ORDERED: Ringers Lactate 1,000 ML IV ONE ×2 (06:37→09:21)
[2022-09-10] MEDS ORDERED: FENTANYL CITR 100 MCG/2 ML ONE ×2 (06:48→09:06)
[2022-09-10] MEDS ORDERED: dexAMETHasone 10 MG/ML VIAL ONE ×2 (06:48→06:58)
[2022-09-10] MEDS ORDERED: MIDAZOLAM HCL 2 MG/2 ML INJ ONE (06:48)
[2022-09-10] MEDS ORDERED: EPINEPHRINE/PF 1 MG/ML AMP ONE (06:48)
[2022-09-10] MEDS ORDERED: BUPIVACAINE 0.25% PF 30 ML VIAL ONE (06:49)
[2022-09-10] MEDS ORDERED: LIDOCAINE 1% MPF 30 ML VIAL ONE (06:49)
[2022-09-10] MEDS ORDERED: SUCCINYLCHOLINE 20 MG/ML (10 ML) IV ONE (06:49)
[2022-09-10] MEDS ORDERED: ACETAMINOPHEN 500 MG TAB ONE (07:08)
[2022-09-10] MEDS ORDERED: Oxycodone HCl/Acetaminophen 1 TAB TAB ONE (07:08)
[2022-09-10] MEDS ORDERED: CELECOXIB 100 MG CAPSULE ONE (07:08)
[2022-09-10] MEDS ORDERED: GABAPENTIN 100 MG CAP ONE (07:08)
[2022-09-10] MEDS ORDERED: propofoL 200 MG/20 ML VIAL IV ONE ×2 (08:19→08:56)
[2022-09-10] MEDS ORDERED: TRANEXAMIC ACID 1,000 MG/10 ML VIAL IV ONE (08:22)
[2022-09-10] MEDS ORDERED: NS 0.9% VIAL 20 ML ONE (08:26)
[2022-09-10] MEDS ORDERED: Phenylephrine HCl 10 MG/ML 1 ML VIAL ONE (08:26)
[2022-09-10] MEDS ORDERED: ONDANSETRON 4 MG/2 ML VIAL ONE (10:13)
[2022-09-10] MEDS ORDERED: ACETAMINOPHEN 325 MG TABLET PO PRN (10:52)
[2022-09-10] MEDS ORDERED: ONDANSETRON 4 MG/2 ML VIAL IV PRN (10:52)
[2022-09-10] MEDS ORDERED: DOCUSATE NA 100 MG CAP PO PRN (10:52)
--- NOTE | 2022-09-10 10:52 | P.BOP ---
Preoperative diagnosis: right knee osteoarthritis Postoperative diagnosis: same Primary procedure: right total knee arthroplasty Child And Family Counselor: NONE,NONE Estimated blood loss: 40 cc Specimen: right knee bone remnants Findings: see dictation Anesthesia: General Complications: None Implants: Biomet Ingrid Persona 7 CR femur, E tibia, 26 patella, 10 CR poly Fluids & blood products: per anesthesia record; TT: 76 mins @ 300 mmHg Transferred to: Recovery Room Condition: Good
[2022-09-10] MEDS ORDERED: TRAMADOL HCL 50 MG TAB PO PRN (10:55)
[2022-09-10] MEDS ORDERED: HYDROMORPHONE HCL 1 MG/ML INJ ONE (11:35)
--- OUTSIDE RECORDS SUMMARY | 2022-09-10 11:58 | XMS REPORT | Continuity of Care Document ---
:1945 Author Organization [facility] t Address [address] [place] [address] Care Team Providers Name Role Phone Asked, No Pcp Primary Care Physician Unavailable SIENA Attending Clinician Unavailable Antonio Wheeler Attending Clinician Ritika POWELL, Lois Galindo Attending Clinician [phone] Yarelis Ferrell, Rhett Attending Clinician Chuytia Attending Clinician Unavailable SIENA Admitting Clinician Unavailable Chuyita Admitting Clinician Unavailable Payers Payer Name Policy Type Policy Number Effective Date Expiration Date S [facility] [id number] 2020 (MEDICARE 00:00:00 REPLACEMENT HMO) Problems This patient has no known problems. Allergies, Adverse Reactions, Alerts Allergy Allergy Status Severity Reaction(s) Onset Inactive Treating Comm ents Source Name Type Date Date Clinician Elle Harman Active Other (See Met reni ty to Comments) 10-03 adverse 00:00: Hospita reaction 00 l s to drug Social History Social Habit Start Date Stop Date Quantity Comments Source History of tobacco Current smoker [facility] Tobacco use and 2021-10-03 2021-10-03 Smokeless [facility] exposure 00:00:00 00:00:00 tobacco non-user Hospital Alcohol intake 2021-10-03 2021-10-03 Current drinker [facility] 00:00:00 00:00:00 of alcohol Hospital (finding) History of Social 2021-10-03 2021-10-[address] function 00:00:00 00:00:00 Hospital Alcohol Comment 2021-10-03 2021-10-03 rare [facility] 00:00:00 00:00:00 Hospital Sex Ass[birth year] At [birth year] [facility] 00:00:00 00:00:00 Hospital Smoking Status Start Date Stop Date Source Ex-smoker 2021-10-03 00:00:00 2021-10-03 00:00:00 [facility] Medications Ordered Filled Start Stop Current Ordering Indication Dosage Frequency Signature Comments Components Source Medication Medication Date Date Medication? Clinician (SIG) Name Name levothyroxi Yes levothyrox [facility] 5[facility] (SYNTHROID) 15:59: mcg tablet Hospita 100 mcg 33 TAKE 1 l tablet TABLET BY MOUTH EVERY DAY ON EMPTY STOMACH IN THE MORNING aspirin Yes 81mg QD Take 81 mg Meth carlos eduardo (ECOTRIN) 5-[address] 81 MG 15:59: daily. Hospita enteric 33 l coated tablet Vital Signs Vital Name Observation Time Observation Value Comments Source Body height 2021-10-16 19:19:00 152.4 cm [facility] Body weight 2021-10-16 19:19:00 90.719 kg [facility] BMI 2021-10-16 19:19:00 39.06 kg/m2 [facility] Systolic blood 2021-10-03 20:58:00 161 mm[Hg] [facility] pressure Diastolic blood 2021-10-03 20:58:00 96 mm[Hg] [facility] pressure Heart rate 2021-10-03 20:58:00 109 /min [facility] Procedures Procedure Date / Time Performed Performing Clinician Mira newell MRI BRAIN W WO 2021-10-16 20:35:00 [facility]is [facility]ak [facility] CONTRAST Josie MRA HEAD WO CONTRAST 2021-10-16 19:55:00 Lois Nowak [facility] Josie Plan of Care Planned Activity Planned Date Details Comments Source Future Scheduled 2022-09-10 65+ [address]OC[address] [facility] Test 11:58:27 VACCINE (1 - PCV) [code = 65+ PNEUMOCOCCAL VACCINE (1 - PCV)] Future Scheduled 2022-09-10 Hepatitis C screening [facility] Test 11:58:27 (procedure) [code = 357335961] Future Scheduled 2022-09-10 SHINGLES VACCINES (1 Met [facility] Test 11:58:27 of 2) [code = SHINGLES VACCINES (1 of 2)] Future Scheduled 2022-09-[address] [facility] Test 11:58:27 SCREENING [code = BREAST CANCER SCREENING] Future Scheduled 2022-09-10 COLONOSCOPY SCREENING [facility] Test 11:58:27 [code = COLONOSCOPY SCREENING] Future Scheduled 2022-09-10 COVID-19 VACCINE (4 - [facility] Test 11:58:27 Booster for Moderna series) [code = COVID-19 VACCINE (4 - Booster for Moderna series)] Future Scheduled 2022-09-10 INFLUENZA VACCINE [facility] Test 11:58:27 [code = INFLUENZA VACCINE] Encounters Start End Encounter Admission Attending Care Care Encounter Source Date/Time Date/Time Type Type Clinicians Facility Department ID 2022-08-06 2022-08-06 [facility] [id number] [facility] 00:00:00 00:00:00 0322 [facility] l [facility] 2022-05-05 2022-05-05 CAV Tomora 2.16.840. 2.16.840.1. CLAC [id number] [facility] 16:00:00 16:30:00 Revisit: Wheeler [id number] [facility] Medical Gap [id number] Closure & 18004 Clinical Check-in 2022-01-27 2022-01-27 CAV Tomora 2.16.840. 2.16.840.1. CLAC [id number] [facility] 15:30:00 16:30:00 Wheeler [id number]. [id number]. [facility] Medical [id number] 2021-11-22 2021-12-02 Office Lois Nowak 1.2.840. 1 [id number] Methodi 08:30:00 00:18:37 Visit Rhett Santoyo 39251.1.[address] 3.430.2.7 Hospit a .3.483546 l .8 2021-11-29 2021-11-29 Outpatient [facility]_T DMG DMG [id number] [facility] 06:21:00 06:21:00 0715 Medica l Group 2021-11-22 2021-11-22 Outpatient RITIKA, [facility] [id number] [place] 00:00:00 00:00:[address] LOIS [address] 2021-11-22 2021-11-22 Travel 1.2.840.1 1.2.996.064 [id number] [facility] 00:00:00 00:00:[address] 3.430.2.7 0.2.7.3.698 Ho spita .3.813656 084.8 l .8 2021-10-17 2021-10-17 Travel 1.2.840.1 1.2.984.598 [id number] [facility] 00:00:00 00:00:[address] 3.430.2.7 0.2.7.3.698 Ho spita .3.438311 084.8 l .8 2021-10-16 2021-10-16 [facility] [id number] [place] 00:00:00 00:00:[address] LO[address] 2021-10-16 2021-10-16 Outpatient [facility] [id number] [facility] 00:00:00 00:00:00 LOIS 328 Method i 2021-10-03 [facility] 1.2.840.1 [id number] [facility] 17:01:34 23:59:00 Encounter Lois 14258.1.[address] Josie 3.430.2.7 Hospi ta .3.525568 l .8 2021-10-03 2021-10-03 Office Ritika, 1.2.840.1 [id number] [facility] 16:00:00 17:09:15 Visit Lois 60360.1.[address] Josie 3.430.2.7 Hospi ta .3.301903 l .8 2021-10-03 2021-10-03 [facility], 1.2.840.1 [id number] Methodi 16:54:40 17:00:00 Encounter Lois [address]64.1.[address] Josie 3.430.2.7 Hospi ta .3.062000 l .8 2021-10-03 2021-10-03 Travel 1.2.840.1 1.2.744.210 [id number] [facility] 00:00:00 00:00:[address] 3.430.2.7 0.2.7.3.698 Ho spita .3.615446 084.8 l .8 2021-10-03 2021-10-03 Outpatient [facility] [id number] [place] 00:00:00 00:00:00 LOIS 644 Method i 2021-10-03 2021-10-03 Outpatient [facility] [id number] [place] 00:00:00 00:00:00 LOIS 781 Method i 2021-10-03 2021-10-03 Outpatient [facility] [id number] [place] 00:00:00 00:00:00 LOIS 331 Method i 2021-05-21 2021-05-21 CAV [place] 2.16.840. 2.16.840.1. CLA [id number] [facility] 19:00:00 20:00:00 Summer [id number]. 595178.4.6. [facility] [id number] [id number] 2021-05-15 2021-05-15 Outpatient [facility]Lizzette [facility] [id number] [facility] 11:30:00 11:30:00 1229 Medica l Group 2020-09-21 2020-09-21 Outpatient Chuyita MARQUEZ [id number] [facility] 04:01:00 04:01:00 0507 Medica l Group Results This patient has no known results.
[2022-09-10 14:43] VITALS: BMI 34.5
--- NOTE | 2022-09-10 15:12 | RAD REPORT ---
EXAM DESCRIPTION: RAD - Knee Right 2 View - 09/10/2022 11:34 am CLINICAL HISTORY: Right knee surgery FINDINGS: Postoperative changes of a knee arthroplasty. The prosthesis is in good position. No fracture or dislocation
[2022-09-10] MEDS: CEFAZOLIN SODIUM 2 GM in NA CHLORIDE 0.9% 100 ML IVPB SCH ×2 (15:37→23:29)
--- NOTE | 2022-09-10 19:20 | P.OP ---
Preoperative diagnosis: right knee osteoarthritis Postoperative diagnosis: right knee osteoarthritis Primary procedure: right total knee arthroplasty Anesthesia: general Estimated blood loss: 40 cc Specimen: right knee bone remnants Findings: see dictation Operative Technique: Indication For Procedure: Meseret is a 76 year-old female presenting to my clinic with signs, symptoms and x-ray findings consistent with severe right knee osteoarthritis. I discussed with the patient at length risks and benefits associated with operative and nonoperative treatment. She had failed conservative treatment measures and had significant difficulties with ADLs secondary to her pain. We discussed operative treatment and elected to proceed with right total knee arthroplasty. She expressed understanding and elected to proceed with operative treatment. Description Of Procedure: After informed consent was obtained, the patient was identified in the preoperative holding area. The right lower extremity was marked. The patient was then taken to the PACU where she underwent a right lower extremity adductor canal block performed by Anesthesia. She was then taken to the operating room, transferred to the operating table in supine fashion, and placed under general anesthesia. The right lower extremity was then prepped and draped in usual sterile fashion. A time-out was initiated. The correct patient and procedure were confirmed and identified. The patient did receive her preoperative prophylactic antibiotics. The right lower extremity was then exsanguinated and tourniquet was inflated to 300 mmHg. Approximately 15 cm longitudinal incision was made centered over the anterior aspect of the right knee. Dissection was then taken to the extensor mechanism and a medial parapatellar arthrotomy was performed. The patella was everted and dislocated laterally and the knee was flexed in the fat pad. The patient had a cyst that was decompressed over the proximal medial tibia with elevation of the medial capsule off the proximal tibia. Medial and lateral meniscus and ACL were all excised exposing the distal femur. Excess hypertrophic synovium was also excised within the suprapatellar pouch. The patient had an MRI of her right knee preoperatively for surgical planning and creation of cutting blocks. The cutting block was then placed over the distal femur and pins were then placed. The distal femoral cutting block was then placed over the pins. An [place] wing was then used to ensure proper depth cut and the distal femur was then cut. The chamfer cutting guide was then placed over the distal end of the femur. Anterior, posterior cuts as well as anterior and posterior chamfer cuts were then made again confirming proper depth of the cut using an [place] wing. Excess bone remnants were then sent to pathology for further evaluation. Next, attention was taken to the proximal tibia. A tibial jig and tibial cutting block was then placed on proximal aspect of the right tibia and locked into position. Pins were then placed and alignment guide was then used to confirm proper alignment of the cut and then coronal and sagittal planes. Once this was confirmed, the cutting jig was placed over the pins and the proximal tibia was cut. Sizing trays were then selected and size 10 mm spacer was used and there was good overall balance in flexion and extension. Next, the trial implants were then placed using the size 7 standard CR femur and a size E tibia and an 10 mm CR poly. There was overall good range of motion and good stability. The t rial implants were then removed. The wound was then irrigated thoroughly with normal saline and the knee was then injected with 30 cc of 0.5% Marcaine both in the posterior capsule and medial and lateral gutters as well as quadriceps tendon and periosteum. The tibia was then punched. The femur was drilled. The cement was then prepared on the back table. Cement was then placed first on the tibial surface followed by size E tibia. Excess cement was removed with [place] elevators. Size 7 standard CR femur was then placed on the distal femur after cement was placed on the distal femur. Excess cement was then removed and a size 10 mm CR trial poly was then placed. The knee was held in extension as the cement hardened. Undersurface of the patella was prepared debriding osteophytes using rongeurs as well as osteophytes.. Cement was placed on the undersurface of the patella after it was cut and a size 26 patella was placed. Once the cement was hardened, the knee was ranged, there was good overall stability both in flexion, extension and as well as stability with varus and valgus stresses. Trial poly was then removed and a size 10 mm CR poly was then placed and locked into position. The knee was then ranged again. There was good overall range of motion both for flexion and extension with good stability. The wound was then irrigated again thoroughly with normal saline using pulse lavage. Tourniquet was let down. Hemostasis was achieved using Bovie electrocautery. Extensor mechanism was then approximated using a #1 Vicryl both in interrupted and running fashion. The fascia was then approximated using 0 Vicryl. Subcutaneous tissue was approximated with a 2-0 Vicryl. Skin was approximated using amber. Sterile dressings were applied. The patient was awakened and transferred back in stable condition Complications: None Implants: [employer] Ingrid Persona 7 CR femur, E tibia, 26 patella, 10 CR patella Fluids & blood products: per anesthesia record; TT: 76 mins @ 300 mmHg Transferred to: Recovery Room Condition: Good
[2022-09-10] MEDS: HYDROCODONE/APAP 7.5/325 MG TAB PO PRN (23:27)
[2022-09-11 04:18] LABS: Hematocrit 36.5 % (36.0-45.0)
[2022-09-11] MEDS: HYDROCODONE/APAP 7.5/325 MG TAB PO PRN ×2 (05:51→10:33)
[2022-09-11] MEDS ORDERED: ENOXAPARIN 30 MG/0.3 ML SQ SCH (06:00)
[2022-09-11] MEDS ORDERED: LEVOTHYROXINE SOD 0.1 MG TAB PO SCH (06:30)
[2022-09-11] MEDS ORDERED: PANTOPRAZOLE 40MG TABLET PO SCH (06:30)
[2022-09-11] MEDS: CEFAZOLIN SODIUM 2 GM in NA CHLORIDE 0.9% 100 ML IVPB SCH (06:36)
[2022-09-11] MEDS ORDERED: CELECOXIB 100 MG CAPSULE PO SCH (09:00)
[2022-09-11 09:11] VITALS: O2SAT 94
[2022-09-11 13:06] VITALS: BP 116/57; TEMP 97.7
[2022-09-11] MEDS ORDERED: propofoL 200 MG/20 ML VIAL IV ONE (13:50)
[2022-09-17] MEDS ORDERED: HOME MED 1 EA UNK (Semaglutide [Ozempic] 0.25 MG/0.2 ML Pen.Injctr) SQ SCH (09:00)
== END 2022-09-11 14:15 | disposition home health service (06) ==
LOC: OR 06:08 → 2ND 10:53
PROVIDERS: ADMIT Orthopaedic Surgery Sports Medicine; ATTEND Orthopaedic Surgery Sports Medicine
PROC: 0SRD069 Replacement of Left Knee Joint with Oxidized Zirconium on Polyethylene Synthetic Substitute, Cemented, Open Approach (ICD-10-PCS; principal; 2022-09-10 08:00)
DX: M17.11 Unilateral primary osteoarthritis, right knee (principal); Z20.822 Contact with and (suspected) exposure to COVID-19
CPT/HCPCS: 85025; 80048; 36415 ×3; 85610; 88304; 88311; 85730; 85018 ×2; 85014 ×2; 71046; 73560; 97110 ×2; 97116 ×2; 97139; 97161; 94010; 87811; 27447; A4216; J2704 ×3; J0171; J2370; J2001; J1650; J2250; J3010 ×2; J1100 ×2; J1170; J2405; G0378 ×4; J7120 ×2; 88305